=== PATIENT | female | born 1995 | race Two or more races ===

== ENCOUNTER 2019-01-29 09:00 | Outpatient (CLI) | payer OTHER, MEDICAID ==
[2019-01-29 21:52] LABS: TRICHOMONAS VAGINALIS DNA NEGATIVE (NEGATIVE)
== END 2019-01-29 23:59 | disposition home or self-care (01) ==
LOC: LAB.R 09:00
PROVIDERS: ATTEND Obstetrics & Gynecology
DX: Z34.00 Encounter for supervision of normal first pregnancy, unspecified trimester (principal)
CPT/HCPCS: 87491; 87591; 87661; 87797

== ENCOUNTER 2019-01-29 12:49 | Outpatient (CLI) | payer OTHER, MEDICAID ==
[2019-01-30 13:07] LABS: HEPATITIS C ANTIBODY NON-REACTIVE (NON-REACTIVE)
[2019-01-30 14:57] LABS: HIV AG/AB 4TH GEN NON-REACTIVE (NON-REACTIVE)
== END 2019-01-29 12:50 | disposition home or self-care (01) ==
LOC: LAB 12:49
PROVIDERS: ATTEND Obstetrics & Gynecology
DX: Z34.00 Encounter for supervision of normal first pregnancy, unspecified trimester (principal)
CPT/HCPCS: 36415; 86803; 87389; 87491; 87591; 87661; 87797

== ENCOUNTER 2019-02-15 15:14 | Outpatient (CLI) | payer OTHER ==
[2019-02-15 15:28] VITALS: BP 112/62
--- NOTE | 2019-02-15 20:17 | Ultrasound Report ---
Reason: decreased movement Procedure Date: 02/15/2019 Accession Number: [id number] / [id number] Procedure: US - OB Biophysical Profile CPT Code: Final Report FULL RESULT: EXAM: BIOPHYSICAL PROFILE EXAM DATE: 02/15/2019 05:39 PM. CLINICAL HISTORY: Decreased movement. COMPARISON: None. TECHNIQUE: Real-time sonographic evaluation of the fetus performed by the business solutions consultant. Multiple electronics parts sales representative static images were saved for review. DATING: Established EGA 37 weeks 6 days with JAMIE 03/02/2019. GENERAL EVALUATION Clarke . Cardiac activity: 125 bpm. movement: Visualized. Presentation: Cephalic. Placenta: Posterior position. No evidence for previa or abruption. Amniotic fluid: Normal. GABRIELA 11.6 cm. MVP 3.9 cm. BIOPHYSICAL PROFILE Breathing = 2 Movement = 2 Tone = 2 Amniotic Fluid = 2 Total 10/19 IMPRESSION: 1. Clarke live intrauterine with gestational age 37 weeks 6 days based on established JAMIE. 2. Biophysical profile score 8 of 8. 3. GABRIELA equals 11.6 cm. ELIAZARA
--- NOTE | 2019-02-15 20:36 | PROVIDER PROGRESS NOTE ---
- HPI Chief Complaint: Other Current : Current EDU 02/28/19 Gestation 38 Weeks and 1 Days 5 Para 0 Vital Signs Temperature 98.2 F 02/15/19 15:26 Heart Rate 70 02/15/19 15:26 Respiratory Rate 20 02/15/19 15:26 Blood Pressure 112/62 02/15/19 15:26 O2 Saturation 100 02/15/19 15:26 Temperature 98.2 F 02/15/19 15:26 Heart Rate 70 02/15/19 15:26 Respiratory Rate 20 02/15/19 15:26 Blood Pressure 112/62 02/15/19 15:26 O2 Saturation 100 02/15/19 15:26 - Procedures OB Procedure Performed: NST (extended monitorin mod eren 15x15 accels no decels TOCO: quiet At initial presentation, nonreactive NST was noted BPP 8/) Diagnosis/Indication for NST: Decreased movement NST Procedure: NST Procedure Start Date 02/15/19 Start Time 15:26 Vibroacoustic Stimulation Used No Patient States Movement Yes Service Date of procedure: 02/15/19 Procedure Details: Inital NST non-reactive Extended monitoring with baseline 125 mod eren 15x15 accels no decels BPP 8/8 - Plan Plan: Reassuring assessment Cat I tracing on extended monitoring BPP 8/8 FU with routine OB care
== END 2019-02-15 20:31 | disposition home or self-care (01) ==
LOC: WFO 15:14 → FBP 15:19 → WFO 20:31
PROVIDERS: ATTEND Obstetrics & Gynecology
DX: O36.8133 Decreased fetal movements, third trimester, fetus 3 (principal); Z3A.38 38 weeks gestation of pregnancy
CPT/HCPCS: 76819; 99214

== ENCOUNTER 2019-02-22 11:31 | Outpatient (CLI) | payer OTHER, MEDICAID ==
--- NOTE | 2019-02-23 10:15 | Ultrasound Report ---
Reason: POOR GROWTH AFFECTING MANAGEMENT OF MOTHER Procedure Date: 02/22/2019 Accession Number: [id number] / [id number] Procedure: US - OB F/U or Repeat CPT Code: Final Report FULL RESULT: EXAM: FOLLOW-UP OBSTETRICAL ULTRASOUND EXAM DATE: 02/22/2019 01:09 PM. CLINICAL HISTORY: Poor growth affecting management of mother. COMPARISON: OB BIOPHYSICAL PROFILE 02/15/2019 4:59 PM. TECHNIQUE: Real-time sonographic evaluation of the fetus performed by the devops engineer. Multiple cash posting representative static images were saved for review. DATING: Established EGA 38 weeks 6 days with JAMIE 03/02/2019 based on working due date. EGA 37 weeks 2 days with JAMIE 03/13/2019 based on the current ultrasound. GENERAL EVALUATION Clarke . Cardiac activity: 132 bpm. movement: Visualized. Presentation: Cephalic. Placenta: Posterior position. Amniotic fluid: Normal. GABRIELA 18.6 cm. MVP 5.3 cm. BIOMETRY Bi-Parietal Diameter (BPD): 9.28 cm, 37 weeks 5 days Head Circumference (HC): 32.91 cm, 37 weeks 3 days Abdominal Circumference (AC): 33.71 cm, 37 weeks 3 days Femur Length (FL): 7.09 cm, 36 weeks 2 days Estimated Weight: 3143 g, 27th percentile for 38 weeks 6 days. IMPRESSION: 1. Clarke live intrauterine with gestational age 38 weeks 6 days based on working due date and LMP. 2. Estimated weight is within expected limits for assigned dating. BOB
== END 2019-02-22 11:32 | disposition home or self-care (01) ==
LOC: DI 11:31
PROVIDERS: ATTEND Obstetrics & Gynecology
DX: Z36.4 Encounter for antenatal screening for fetal growth retardation (principal); O36.5930 Maternal care for other known or suspected poor fetal growth, third trimester, not applicable or unspecified; Z3A.38 38 weeks gestation of pregnancy
CPT/HCPCS: 76816

== ENCOUNTER 2019-02-25 23:52 | Outpatient (CLI) | payer MEDICAID, OTHER ==
[2019-02-26 00:09] VITALS: BP 122/64
--- NOTE | 2019-02-26 07:17 | PROVIDER PROGRESS NOTE ---
- HPI Chief Complaint: Labor Check Current : Current EDU 03/02/19 Gestation 39 Weeks and 3 Days 5 Para 0 Vital Signs Temperature 36.4 C L 02/26/19 00:03 Heart Rate 72 02/26/19 00:03 Respiratory Rate 18 02/26/19 00:03 Blood Pressure 122/64 02/26/19 00:03 O2 Saturation 100 02/26/19 00:03 Temperature 36.4 C L 02/26/19 00:03 Heart Rate 72 02/26/19 00:03 Respiratory Rate 18 02/26/19 00:03 Blood Pressure 122/64 02/26/19 00:03 O2 Saturation 100 02/26/19 00:03 - Procedures OB Procedure Performed: NST NST Procedure: NST Procedure Start Time 15:26 base line 120 Accelerations present Service Date of procedure: 02/25/19 Procedure Details: cervix closed per nursing not in labor.
== END 2019-02-26 01:49 | disposition home or self-care (01) ==
LOC: WFO 23:52 → FBP 23:56 → WFO 02-26 01:49
PROVIDERS: ATTEND Obstetrics & Gynecology
DX: Z34.83 Encounter for supervision of other normal pregnancy, third trimester (principal); Z3A.39 39 weeks gestation of pregnancy
CPT/HCPCS: 99213

== ENCOUNTER 2019-03-07 23:58 | Outpatient (CLI) | payer OTHER ==
[2019-03-08 00:22] VITALS: BP 127/76
[2019-03-08 01:31] LABS: RUPTURE OF MEMBRANES PLUS NEGATIVE (NEGATIVE)
--- NOTE | 2019-03-08 02:23 | PROCEDURE REPORT ---
- HPI Diagnosis/Indication for NST: Post-dates gestation Current EDU 03/02/19 Gestation 40 Weeks and 6 Days 5 Para 0 Vital Signs Temperature 98.2 F 03/08/19 00:11 Heart Rate 69 03/08/19 00:11 Respiratory Rate 18 03/08/19 00:11 Blood Pressure 127/76 03/08/19 00:11 O2 Saturation 99 03/08/19 00:11 Temperature 98.2 F 03/08/19 00:11 Heart Rate 69 03/08/19 00:11 Respiratory Rate 18 03/08/19 00:11 Blood Pressure 127/76 03/08/19 00:11 O2 Saturation 99 03/08/19 00:11 - NST Procedure NST Procedure Start Time 15:26 - Results and Plan Findings/Impression: Pt comes to triage worried about being post dates. Having some moderate UC q 10+min. Wonders if she is leaking fluid--has had increased watery discharge over the past 3d, definitely coming from the vagina, is clear mixed with white and yellow tint, is clumpy. Feeling a little itchy externally. Some intermittent back pain that is mild and new. AVSS, alert, NAD, is not appearing to be in significant discomfort during the visit SVE 3/90/-3/soft/posterior US vertex with sufficient fluid--MVP not measured ROM plus test was negative External vulvar irritation c/w yeast vaginitis Category 1 NST [place] q4-10min Pt was offered membrane sweep and declines for now. Worried about IOL, we discussed that process. Worried about going post dates, we reviewed that current surveillance is reassuring/normal. She will f/u with Dr. Garcia later today and discuss setting up IOL.
== END 2019-03-08 01:48 | disposition home or self-care (01) ==
LOC: WFO 23:58 → FBP 03-08 → WFO 03-08 01:48
PROVIDERS: ATTEND Obstetrics & Gynecology
DX: O48.0 Post-term pregnancy (principal); Z3A.40 40 weeks gestation of pregnancy; O99.89 Other specified diseases and conditions complicating pregnancy, childbirth and the puerperium; N89.8 Other specified noninflammatory disorders of vagina
CPT/HCPCS: 84112; 99213; 99214

== ENCOUNTER 2019-03-09 13:15 | Inpatient (IN) | payer OTHER ==
--- NOTE | 2019-03-09 13:57 | HISTORY & PHYSICAL EXAMINATION ---
Admit History - Visit Reason Visit Reason: Other - : 5 Parity: 0 Premature: 0 Ectopic: 0 : 4 Care: positive: [facility] Risk/History: positive: Labor induction Complications This : positive: None - Mother's Labs Mother's Blood Type: positive: O Mother's RH: positive: Positive GBS: positive: Other Rubella Status: positive: Immune Meds/Allgy - Allergies Allergies/Adverse Reactions: Allergies Allergy/AdvReac Type Severity Reaction Status Date / Time No Known Drug Allergies Allergy Verified 03/09/19 13:53 Review of Systems - Constitutional Constitutional: denies: Fever, Chills, Poor appetite - Eyes Eyes: denies: Blurred vision, Spots in vision - Cardiovascular Cariovascular: denies: Irregular heart rate, Palpitations, Chest pain - Respiratory Respiratory: denies: Cough, SOB at rest - Gastrointestinal Gastrointestinal: denies: Abdominal pain, Nausea, Vomiting - Genitourinary Genitourinary: denies: Dysuria - Neurological Neurological: denies: Headache, Dizziness - Psychiatric Psychiatric: denies: Depression - All Other Systems All Other Systems: reports: Reviewed and negative Physical - Abdominal Exam Contraction Intensity: positive: Mild, Irritability Uterine Resting Tone: positive: Soft - Monitoring Strip Review: positive: Category I - Presentation Presentation: positive: Vertex - Vaginal Exam Membranes: positive: Membranes intact Dilation (in cm): 4 Effacement (%): 70 Station: positive: -2 Cervical Position: positive: Midposition - Speculum Exam Speculum Exam Performed: positive: No (RESP CTA CV RRR 3/6 systolic murmur at LSB Abdomen gravid, S=D, non-tender) Plan for Labor - Plan For Labor Plan for Labor: 23yo at 41 0/7 weeks by LMP c/w second trimester scan GBS unknown ( 03/05) O+ who is admitted for postdates IOL. No ROM or bleeding, normal activity. Not feeling any contractions. course unremarkable. Labs as noted and Glucola 73 Hep B, C/HIV/VDRL NR GC chlam neg Anemia/ hgb 11.4 on 11/14 Vertex by scan Favorable cervix. Planning unmedicated labor Planning d provera for contraception EFW 3600gm Check CBC, T&S, start pitocin GBS unknown protocol. Expect
[2019-03-09] MEDS ORDERED: SODIUM CHLORIDE FLUSH 0.9% 10 ML SYRINGE IVP PRN (14:39)
[2019-03-09] MEDS ORDERED: fentaNYL 100 MCG/2 ML VIAL IVP PRN (14:39)
[2019-03-09] MEDS ORDERED: PROMETHAZINE INJ 25 MG in SODIUM CHLORIDE 0.9% 50 ML IV PRN (14:46)
--- NOTE | 2019-03-09 14:54 | DISCHARGE SUMMARY ---
Discharge Summary Admit Date: 03/09/19 Code Status: Attempt Resuscitation Condition at Discharge: Good Discharge Disposition: 01 Home, Self Care - DIAGNOSES Admission Diagnoses: at 41 weeks Morbid obesity Anemia - HPI History of Present Illness: 23yo now 1 admitted for IOL at 41 weeks by LMP c/w second trimester scan. complicated by morbid obesity and postdates. GBS unknown; Secondary to favorable cervix, oxytocin was started. - HOSPITAL COURSE Hospital Course: On pitocin her labor progressed to full dilatation. She was delivered of a 3201gm vigorous male infant apgars 7/8 on 03/10. She had bilateral sulcus and periurethral lacerations which required repair. Because of significant tissue edema and mucosal friability, a vaginal pack was placed which was removed on PPD 1. EBL was 450cc. She remained stable but required significant support in terms of education, self care and that of . AGENT BASED MODELER consult obtained. She improved over two days in terms of understanding and ability to care for baby. She was well. Baby required phototherapy. She was DC'd home on PPD 2 with f/u in one week. Depo provera for contraception. - ALLERGIES Allergies/Adverse Reactions: Allergies Allergy/AdvReac Type Severity Reaction Status Date / Time No Known Drug Allergies Allergy Verified 03/09/19 13:53 - MEDICATIONS Home Medications: Ambulatory Orders Medication Instructions Recorded Confirmed Pnv No.95/Ferrous Fum/Folic AC 1 tab PO DAILY 03/09/19 03/09/19 [ Caplet] Acetaminophen [Tylenol] 650 mg PO Q6HR PRN 03/12/19 03/12/19 Ibuprofen [Ibu] 600 mg PO Q6HR PRN MDD 3000mg 03/12/19 03/12/19 - PHYSICAL EXAM AT DISCHARGE General Appearance: positive: No acute distress, Alert Eyes Bilateral: positive: Normal inspection Respiratory: positive: No respiratory distress, Breath sounds nml Cardiovascular: positive: Regular rate & rhythm, Systolic murmur Abdomen: positive: Non-tender, Other (Fundus firm below umbilicus) Skin: positive: Color nml Extremities: positive: Nml appearance Neurologic/Psychiatric: positive: Oriented x3 - LABS Result Diagrams: 03/09/19 14:51 - FOLLOW UP Follow Up: One week
[2019-03-09 15:01] LABS: BASOPHILS % (AUTO) 0.3 %; EOSINOPHILS # (AUTO) 0.1 10^3/uL (0.0-0.7); EOSINOPHILS % (AUTO) 0.7 %; LYMPHOCYTES # (AUTO) 1.6 10^3/uL (1.5-3.5); LYMPHOCYTES % (AUTO) 12.1 %; MEAN CORPUSCULAR HGB CONC 34.3 g/dL (32.0-36.0); MEAN CORPUSCULAR VOLUME 93.3 fL (81.0-99.0); MEAN PLATELET VOLUME 10.4 fL (7.9-10.8); MONOCYTES # (AUTO) 0.9 10^3/uL (0.0-1.0); MONOCYTES % (AUTO) 6.9 %; NEUTROPHILS # (AUTO) 10.5 10^3/uL (1.5-6.6); NEUTROPHILS % (AUTO) 78.6 %; PLT - PLATELET COUNT 249 10^3/uL (130-450); RED BLOOD COUNT 4.06 10^6/uL (4.20-5.40); RED CELL DISTRIBUTION WIDTH 12.7 % (12.0-15.0); WHITE BLOOD COUNT 13.4 x10^3/uL (4.8-10.8)
[2019-03-09] MEDS ORDERED: OXYTOCIN/DEXTROSE 5 % 30 UNIT/500 ML BAG IV SCH (16:00)
[2019-03-09] MEDS ORDERED: OXYTOCIN/DEXTROSE 5 % 30 UNIT/500 ML BAG IV ONE (16:01)
[2019-03-09] MEDS: LACTATED RINGERS 1,000 ML IV SCH ×3 (16:15→20:48)
--- NOTE | 2019-03-09 16:57 | PROVIDER PROGRESS NOTE ---
Labor Progress Note - Uterine Monitoring Contraction Intensity: positive: Mild Uterine Resting Tone: positive: Soft - Monitoring Monitor Mode: positive: External ultrasound Heart Rate Variability: positive: Moderate (6-25 bmp) Accelerations: positive: Present, 15x15 Decelerations: positive: Variable Strip Review: positive: Category II (Few shallow decels with spontaneous recovery. Pit at 3mu Continue induction)
[2019-03-09] MEDS ORDERED: SODIUM CHLORIDE FLUSH 0.9% 10 ML SYRINGE IVP SCH (17:00)
--- NOTE | 2019-03-09 18:17 | PROVIDER PROGRESS NOTE ---
Subjective - Prog Note Date Prog Note Date: 03/09/19 Prog Note Time: 18:16 (Still very comfortable. Pit at 5mu/min. Few mild contractions. 1L bolus given, now FH category1. Continue IOL) Objective - Vital Signs/Intake & Output Intake & Output: Intake & Output 03/06/19 03/07/19 03/08/19 03/09/19 23:59 23:59 23:59 23:59 Intake Total 228.317 Balance 228.317 - Lab Results Fish Bones: 03/09/19 14:51 Other Labs: Lab Results x24hrs 03/09/19 03/09/19 Range/Units 14:51 14:51 WBC 13.4 H (4.8-10.8) x10^3/uL RBC 4.06 L (4.20-5.40) 10^6/uL Hgb 13.0 (12.0-16.0) g/dL Hct 37.9 (37.0-47.0) % MCV 93.3 (81.0-99.0) fL MCH 32.0 H (27.0-31.0) pg MCHC 34.3 (32.0-36.0) g/dL RDW 12.7 (12.0-15.0) % Plt Count 249 (130-450) 10^3/uL MPV 10.4 (7.9-10.8) fL Neut # (Auto) 10.5 H (1.5-6.6) 10^3/uL Lymph # (Auto) 1.6 (1.5-3.5) 10^3/uL [place] # (Auto) 0.9 (0.0-1.0) 10^3/uL Eos # (Auto) 0.1 (0.0-0.7) 10^3/uL Baso # (Auto) 0.0 (0.0-0.1) 10^3/uL Absolute Nucleated RBC 0.00 x10^3/uL Nucleated RBC % 0.0 /100WBC Blood Type O POSITIVE Antibody Screen NEGATIVE
[2019-03-09] MEDS ORDERED: CALCIUM CARBONATE CHEW 500 MG TABLET PO PRN (19:58)
--- NOTE | 2019-03-09 22:19 | PROVIDER PROGRESS NOTE ---
Subjective - Prog Note Date Prog Note Date: 03/09/19 Prog Note Time: 22:16 - Subjective Subjective: Starting to feel contractions but is sleeping through most. VSS feb FH largely Category 1. Rare episodes of small variables as previously noted. Contractions q3 but with segments widely spaced. Exam deferred. Continue to increase pitocin. Plan max 30mu/min and then a break if not in labor. Objective - Vital Signs/Intake & Output Intake & Output: Intake & Output 03/06/19 03/07/19 03/08/19 03/09/19 23:59 23:59 23:59 23:59 Intake Total 698.300 Output Total 251 Balance 447.300 - Lab Results Fish Bones: 03/09/19 14:51 Other Labs: Lab Results x24hrs 03/09/19 03/09/19 Range/Units 14:51 14:51 WBC 13.4 H (4.8-10.8) x10^3/uL RBC 4.06 L (4.20-5.40) 10^6/uL Hgb 13.0 (12.0-16.0) g/dL Hct 37.9 (37.0-47.0) % MCV 93.3 (81.0-99.0) fL MCH 32.0 H (27.0-31.0) pg MCHC 34.3 (32.0-36.0) g/dL RDW 12.7 (12.0-15.0) % Plt Count 249 (130-450) 10^3/uL MPV 10.4 (7.9-10.8) fL Neut # (Auto) 10.5 H (1.5-6.6) 10^3/uL Lymph # (Auto) 1.6 (1.5-3.5) 10^3/uL [place] # (Auto) 0.9 (0.0-1.0) 10^3/uL Eos # (Auto) 0.1 (0.0-0.7) 10^3/uL Baso # (Auto) 0.0 (0.0-0.1) 10^3/uL Absolute Nucleated RBC 0.00 x10^3/uL Nucleated RBC % 0.0 /100WBC Blood Type O POSITIVE Antibody Screen NEGATIVE
[2019-03-10] MEDS ORDERED: ROPIVACAINE 0.2% 200 MG/100 ML BAG EP ONE (00:13)
[2019-03-10] MEDS ORDERED: LIDOCAINE-MPF 1% 30 ML VIAL ONE (00:35)
[2019-03-10] MEDS ORDERED: ePHEDrine 50 MG/ML VIAL IVP PRN (01:23)
[2019-03-10] MEDS ORDERED: ONDANSETRON 4 MG/2 ML VIAL IVP PRN (01:23)
[2019-03-10] MEDS ORDERED: LACTATED RINGERS 500 ML IV ONE (01:23)
[2019-03-10] MEDS ORDERED: NALOXONE 0.4 MG/ML VIAL IVP PRN (01:23)
[2019-03-10] MEDS ORDERED: NALBUPHINE 10 MG/ML AMP IVP PRN (01:23)
[2019-03-10] MEDS ORDERED: ROPIVACAINE 0.2% 200 MG/100 ML BAG EP PRN (01:23)
[2019-03-10] MEDS ORDERED: diphenhydrAMINE INJ 50 MG/ML VIAL IVP PRN (01:23)
--- NOTE | 2019-03-10 01:23 | ANESTHESIA ---
Pre-Anesthesia VS, & Labs - Diagnosis Active labor - Procedure labor epidural Height 5 ft 7 in Weight (kg) 105.687 kg - Is Patient ?: Yes - Lab Results Current Lab Results: Laboratory Tests 03/09/19 14:51: Blood Type O POSITIVE, Antibody Screen NEGATIVE 03/09/19 14:51: WBC 13.4 H, RBC 4.06 L, Hgb 13.0, Hct 37.9, MCV 93.3, MCH 32.0 H , MCHC 34.3, RDW 12.7, Plt Count 249, MPV 10.4, Neut # (Auto) 10.5 H, Lymph # (Auto) 1.6, [place] # (Auto) 0.9, Eos # (Auto) 0.1, Baso # (Auto) 0.0, Absolute Nucleated RBC 0.00, Nucleated RBC % 0.0 Fish Bones: 03/09/19 14:51 Home Medications and Allergies Home Medications: Ambulatory Orders Pnv No.95/Ferrous Fum/Folic AC [ Caplet] 1 tab PO DAILY 03/09/19 Active Medications Acetaminophen (Tylenol) 650 mg PO Q6H PRN PRN Reason: PAIN Calcium Carbonate/Glycine (Tums) 500 mg PO BID PRN PRN Reason: Heartburn Last Admin: 03/09/19 20:49 Dose: 500 mg Fentanyl (Fentanyl) 100 mcg IVP Q2HR PRN PRN Reason: PAIN Lactated Ringer's (Lr) 1,000 mls @ 150 mls/hr IV .Q6H40M [facility] Last Admin: 03/09/19 20:48 Dose: 150 mls/hr Promethazine HCl 25 mg/ Sodium (Chloride) 51 mls @ 100 mls/hr IV Q6H PRN PRN Reason: Agitation OXYTOCIN/DEXTROSE 5 % (Pitocin/Dextrose 5%) 30 unit in 500 mls @ 1 mls/hr IV TITR [facility]; Protocol Last Titration: 03/09/19 19:34 Dose: 9 mls/hr Sodium Chloride (Normal Saline Flush 0.9%) 10 ml IVP PRN PRN PRN Reason: NEEDED PER PROVIDER ORDERS Sodium Chloride (Normal Saline Flush 0.9%) 10 ml IVP 0100,0900,1700 [facility] Last Admin: 03/09/19 20:51 Dose: Not Given Pnv No.95/Ferrous Fum/Folic AC [ Caplet] 1 tab PO DAILY 03/09/19 Allergies/Adverse Reactions: Allergies Allergy/AdvReac Type Severity Reaction Status Date / Time No Known Drug Allergies Allergy Verified 03/09/19 13:53 Anes History & Medical History - Anesthetic History Anesthesia Complications: reports: No previous complications Family history of Anesthesia Complications: Denies Family history of Malignant Hyperthermia: Denies - Medical History Cardiovascular: reports: None Pulmonary: reports: None Gastrointestinal: reports: None Urinary: reports: None Neuro: reports: None Musculoskeletal: reports: Scoliosis Endocrine/Autoimmune: reports: None Blood Disorders: reports: None Skin: reports: None Smoking Status: Never smoker Psychosocial: reports: No issues indicated - Obstetrical History : 5 Parity: 0 Events: positive: Labor induction Complications: positive: None Exam General: Alert, Oriented x3, Cooperative, No acute distress Dental: WNL Mouth Openin Fingerbreadth Neck Mobility: Normal Mallampati classification: II Thyromental Distance: 4-6 cm Respiratory: Lungs clear, Normal breath sounds, No respiratory distress, No accessory muscle use Cardiovascular: Regular rate, Normal S1, Normal S2, No murmurs Abdomen: Normal bowel sounds, Soft, No tenderness, No hepatospenomegaly, No masses Extremities: No clubbing, No cyanosis, No edema, Normal pulses, No tenderness/swelling Neurological: Normal gait, Normal speech, Strength at 5/5 X4 ext, Normal tone, Sensation intact, Cranial nerves 3-12 NL, Reflexes 2+ Mental/Cognitive Status: Alert/Oriented X3, Normal for patient Cognitive Status: Within normal limits Plan Anesthesia Type: Epidural Consent for Procedure(s) Verified and Reviewed: Yes Code Status: Attempt Resuscitation ASA classification: 2-Mild systemic disease Is this case an emergency?: No
--- NOTE | 2019-03-10 01:37 | ANESTHESIA PROCEDURE NOTE ---
Diagnosis: active labor Procedure: Labor Epidural Height and Weight: Height 5 ft 7 in Weight (kg) 105.687 kg Allergies No Known Drug Allergies Allergy (Verified 03/09/19 13:53) ASA classification: 2-Mild systemic disease Is this case an emergency?: No Anes. Procedure Start Time: 00:45 Procedure Notes: Patient requesting epidural for labor pain relief. At the bedside at about 0045. Pre procedure anesthesia evaluation completed, consent signed. Spoke with the patient in detail about the benefits and potential risks of epidural placement. She agrees to proceed. Patient has quite a bit of scoliosis which made the epidural placement a little challenging, but she remained cooperative. SKin was prepped with chlorohexidine in a sterile fashion, and numbed with Lidocaine 1% 3ml. 3rd attempt was successful at L4 L5 interspace and was negative for both csf and blood. Epidural Catheter threaded in with ease. TD was negative. First bolus of 5mls of 1% plain lidocaine with 5ml of NS given after negative aspiration. Patient reported relief and there was a little drop in her BP and HR. Baby remained stable as well.Patient tolerated the procedure well.
--- NOTE | 2019-03-10 03:26 | PROVIDER PROGRESS NOTE ---
Subjective - Prog Note Date Prog Note Date: 03/10/19 Prog Note Time: 03:22 - Subjective Subjective: Comfortable with epidural. VSS afeb Muniz in place, urine clear, pale >100cc/hr FH Category 2. Moderate variability, variable decels with some contractions; short duration, improved with position change Pit at 4mu/min, contractions q2-4 Cx 8-9/90/-1 per RN exam Doing well. Good progress. Continue position change and observation for now. Objective - Vital Signs/Intake & Output Intake & Output: Intake & Output 03/07/19 03/08/19 03/09/19 03/10/19 23:59 23:59 23:59 23:59 Intake Total 898.300 Output Total 251 560 Balance 647.300 -560 - Lab Results Fish Bones: 03/09/19 14:51 Other Labs: Lab Results x24hrs 03/09/19 03/09/19 Range/Units 14:51 14:51 WBC 13.4 H (4.8-10.8) x10^3/uL RBC 4.06 L (4.20-5.40) 10^6/uL Hgb 13.0 (12.0-16.0) g/dL Hct 37.9 (37.0-47.0) % MCV 93.3 (81.0-99.0) fL MCH 32.0 H (27.0-31.0) pg MCHC 34.3 (32.0-36.0) g/dL RDW 12.7 (12.0-15.0) % Plt Count 249 (130-450) 10^3/uL MPV 10.4 (7.9-10.8) fL Neut # (Auto) 10.5 H (1.5-6.6) 10^3/uL Lymph # (Auto) 1.6 (1.5-3.5) 10^3/uL [place] # (Auto) 0.9 (0.0-1.0) 10^3/uL Eos # (Auto) 0.1 (0.0-0.7) 10^3/uL Baso # (Auto) 0.0 (0.0-0.1) 10^3/uL Absolute Nucleated RBC 0.00 x10^3/uL Nucleated RBC % 0.0 /100WBC Blood Type O POSITIVE Antibody Screen NEGATIVE
--- NOTE | 2019-03-10 04:06 | PROVIDER PROGRESS NOTE ---
Subjective - Prog Note Date Prog Note Date: 03/10/19 Prog Note Time: 04:04 - Subjective Subjective: Continues to be comfortable, not feeling anything VSS afeb Pit at 4 FH with moderate variability, decels nearly resolved, now occurring rarely Cx Rim/100/+1 A/P Good progress, FH improved with position change. Continue; expect Objective - Vital Signs/Intake & Output Intake & Output: Intake & Output 03/07/19 03/08/19 03/09/19 03/10/19 23:59 23:59 23:59 23:59 Intake Total 898.300 Output Total 251 560 Balance 647.300 -560 - Lab Results Fish Bones: 03/09/19 14:51 Other Labs: Lab Results x24hrs 03/09/19 03/09/19 Range/Units 14:51 14:51 WBC 13.4 H (4.8-10.8) x10^3/uL RBC 4.06 L (4.20-5.40) 10^6/uL Hgb 13.0 (12.0-16.0) g/dL Hct 37.9 (37.0-47.0) % MCV 93.3 (81.0-99.0) fL MCH 32.0 H (27.0-31.0) pg MCHC 34.3 (32.0-36.0) g/dL RDW 12.7 (12.0-15.0) % Plt Count 249 (130-450) 10^3/uL MPV 10.4 (7.9-10.8) fL Neut # (Auto) 10.5 H (1.5-6.6) 10^3/uL Lymph # (Auto) 1.6 (1.5-3.5) 10^3/uL [place] # (Auto) 0.9 (0.0-1.0) 10^3/uL Eos # (Auto) 0.1 (0.0-0.7) 10^3/uL Baso # (Auto) 0.0 (0.0-0.1) 10^3/uL Absolute Nucleated RBC 0.00 x10^3/uL Nucleated RBC % 0.0 /100WBC Blood Type O POSITIVE Antibody Screen NEGATIVE
[2019-03-10] MEDS ORDERED: miSOPROStoL 100 MCG TABLET ONE (05:03)
--- NOTE | 2019-03-10 05:20 | PROVIDER PROGRESS NOTE ---
Subjective - Prog Note Date Prog Note Date: 03/10/19 Prog Note Time: 05:18 - Subjective Subjective: Feeling low back pressure VSS afeb Pit at 6mu/min Contractions spaced FH with mod variability, few early decels Cx very scant anterior lip that disappears with contraction. +2 AROM clear. A/P Stable. Expect Objective - Vital Signs/Intake & Output Intake & Output: Intake & Output 03/07/19 03/08/19 03/09/19 03/10/19 23:59 23:59 23:59 23:59 Intake Total 898.300 Output Total 251 635 Balance 647.300 -635 - Lab Results Fish Bones: 03/09/19 14:51 Other Labs: Lab Results x24hrs 03/09/19 03/09/19 Range/Units 14:51 14:51 WBC 13.4 H (4.8-10.8) x10^3/uL RBC 4.06 L (4.20-5.40) 10^6/uL Hgb 13.0 (12.0-16.0) g/dL Hct 37.9 (37.0-47.0) % MCV 93.3 (81.0-99.0) fL MCH 32.0 H (27.0-31.0) pg MCHC 34.3 (32.0-36.0) g/dL RDW 12.7 (12.0-15.0) % Plt Count 249 (130-450) 10^3/uL MPV 10.4 (7.9-10.8) fL Neut # (Auto) 10.5 H (1.5-6.6) 10^3/uL Lymph # (Auto) 1.6 (1.5-3.5) 10^3/uL [place] # (Auto) 0.9 (0.0-1.0) 10^3/uL Eos # (Auto) 0.1 (0.0-0.7) 10^3/uL Baso # (Auto) 0.0 (0.0-0.1) 10^3/uL Absolute Nucleated RBC 0.00 x10^3/uL Nucleated RBC % 0.0 /100WBC Blood Type O POSITIVE Antibody Screen NEGATIVE
--- NOTE | 2019-03-10 05:44 | PROVIDER PROGRESS NOTE ---
Subjective - Prog Note Date Prog Note Date: 03/10/19 Prog Note Time: 05:42 - Subjective Subjective: Very uncomfortable in bed, not with contractions. Reclined on her side with resulting decel to 90's lasting 2 minutes. Spontaneous recovery when repositioned. Other parameters unchanged. A/P Continue labor. Objective - Vital Signs/Intake & Output Intake & Output: Intake & Output 03/07/19 03/08/19 03/09/19 03/10/19 23:59 23:59 23:59 23:59 Intake Total 898.300 Output Total 251 635 Balance 647.300 -635 - Lab Results Fish Bones: 03/09/19 14:51 Other Labs: Lab Results x24hrs 03/09/19 03/09/19 Range/Units 14:51 14:51 WBC 13.4 H (4.8-10.8) x10^3/uL RBC 4.06 L (4.20-5.40) 10^6/uL Hgb 13.0 (12.0-16.0) g/dL Hct 37.9 (37.0-47.0) % MCV 93.3 (81.0-99.0) fL MCH 32.0 H (27.0-31.0) pg MCHC 34.3 (32.0-36.0) g/dL RDW 12.7 (12.0-15.0) % Plt Count 249 (130-450) 10^3/uL MPV 10.4 (7.9-10.8) fL Neut # (Auto) 10.5 H (1.5-6.6) 10^3/uL Lymph # (Auto) 1.6 (1.5-3.5) 10^3/uL [place] # (Auto) 0.9 (0.0-1.0) 10^3/uL Eos # (Auto) 0.1 (0.0-0.7) 10^3/uL Baso # (Auto) 0.0 (0.0-0.1) 10^3/uL Absolute Nucleated RBC 0.00 x10^3/uL Nucleated RBC % 0.0 /100WBC Blood Type O POSITIVE Antibody Screen NEGATIVE
--- NOTE | 2019-03-10 06:15 | PROVIDER PROGRESS NOTE ---
Subjective - Prog Note Date Prog Note Date: 03/10/19 Prog Note Time: 06:14 - Subjective Subjective: Feeling pressure VSS afeb Few early decels. Pit at 6 Fully/+2>>+3 with contraction. A/P Will start pushing Objective - Vital Signs/Intake & Output Intake & Output: Intake & Output 03/07/19 03/08/19 03/09/19 03/10/19 23:59 23:59 23:59 23:59 Intake Total 898.300 Output Total 251 635 Balance 647.300 -635 - Lab Results Fish Bones: 03/09/19 14:51 Other Labs: Lab Results x24hrs 03/09/19 03/09/19 Range/Units 14:51 14:51 WBC 13.4 H (4.8-10.8) x10^3/uL RBC 4.06 L (4.20-5.40) 10^6/uL Hgb 13.0 (12.0-16.0) g/dL Hct 37.9 (37.0-47.0) % MCV 93.3 (81.0-99.0) fL MCH 32.0 H (27.0-31.0) pg MCHC 34.3 (32.0-36.0) g/dL RDW 12.7 (12.0-15.0) % Plt Count 249 (130-450) 10^3/uL MPV 10.4 (7.9-10.8) fL Neut # (Auto) 10.5 H (1.5-6.6) 10^3/uL Lymph # (Auto) 1.6 (1.5-3.5) 10^3/uL [place] # (Auto) 0.9 (0.0-1.0) 10^3/uL Eos # (Auto) 0.1 (0.0-0.7) 10^3/uL Baso # (Auto) 0.0 (0.0-0.1) 10^3/uL Absolute Nucleated RBC 0.00 x10^3/uL Nucleated RBC % 0.0 /100WBC Blood Type O POSITIVE Antibody Screen NEGATIVE
[2019-03-10] MEDS ORDERED: ROPIVACAINE 0.2% 0 MG/0 ML BAG EP ONE (06:29)
--- NOTE | 2019-03-10 08:52 | DELIVERY NOTE ---
Delivery Note - Labor Labor: positive: Induced by oxytocin - Delivery Method Delivery Method: positive: Spontaneous vaginal delivery - Cervical Ripening Method Cervical Ripening Method: positive: Oxytocin - Presentation Presentation: positive: Vertex, ARCHIE - left occiput anterior - Nuchal Cord Nuchal Cord: positive: None - Anesthetic Anesthetic Type: - Amniotic Fluid Description Amniotic Fluid Description: positive: Clear - Episiotomy Type Episiotomy Type: positive: None - Laceration Laceration: positive: Periurethral, Sulcus - Suture Suture Type: positive: Vicryl Suture Size: positive: 2-0, 3-0 - Delivery Outcome Delivery Outcome: positive: Livebirth - [place]: positive: Placed in direct skin contact with mother, Bulb syringe, Warmed, Dittmer used [place] sex: positive: Male - Cord Cord: positive: 3 vessels - Placenta Placenta: positive: Intact, Spontaneous - Estimated Blood Loss Estimated Blood Loss (in cc): 450 - Delivery Comments (Free Text/Narrative) Delivery Comments (Free Text/Narrative): Male infant 3201gms apgars 7/8 at 0701. Placenta expressed intact at 0706. Marked mucosal, labial edema with friable mucosa. Upper vagina, perineum, rectum intact. Bilateral sulus and periurethral lacs repaired. Vaginal pack placed, trotter catheter replaced.
[2019-03-10] MEDS ORDERED: HYDROCORTISONE 1% CREAM 28 GM TUBE PR PRN (08:53)
[2019-03-10] MEDS ORDERED: WITCH HAZEL/GLYCERIN 1 PAD TOP PRN (08:53)
[2019-03-10] MEDS: DOCUSATE SODIUM 100 MG CAPSULE PO SCH ×2 (10:51→23:47)
[2019-03-10] MEDS: IBUPROFEN 600 MG TABLET PO SCH ×3 (10:51→23:47)
[2019-03-10] MEDS: ACETAMINOPHEN 325 MG TABLET PO PRN (10:52)
[2019-03-10] MEDS: HYDROcod/ACETAM 5/325 MG TABLET PO PRN ×2 (17:02→21:16)
[2019-03-11] MEDS: HYDROcod/ACETAM 5/325 MG TABLET PO PRN (02:21)
[2019-03-11] MEDS: IBUPROFEN 600 MG TABLET PO SCH ×3 (06:02→18:32)
[2019-03-11] MEDS: DOCUSATE SODIUM 100 MG CAPSULE PO SCH ×2 (08:34→23:13)
--- NOTE | 2019-03-11 13:40 | PROVIDER PROGRESS NOTE ---
Subjective - Prog Note Date Prog Note Date: 03/11/19 Prog Note Time: 13:38 - Subjective Subjective: PPD 1 Patient with limited understanding of basic realities surrounding self care and care of baby. Needing much support, education and encouragement. INFORMATION SYSTEMS SUPERVISOR involved. Ambulating. Minimal lochia. Regular diet. VSS afeb. Copious urine output via trotter. Abd soft, non-tender. Fundus firm below umbilicus. Significant decrease in labial edema. Pack removed, no active bleeding. Trotter removed. A/P Stable from OB standpoint. Baby under bili lights and obs for GBS unkown Continue support and education. Expect DC tomorrow. Could benefit from VNA and early follow up. Planning Depo provera for contraception. Objective - Vital Signs/Intake & Output Vital Signs: Vital Signs x48h Temp Pulse Resp BP Pulse Ox 03/11/19 09:00 98.2 F 80 19 107/44 L 100 Intake & Output: Intake & Output 03/08/19 03/09/19 03/10/19 03/11/19 23:59 23:59 23:59 23:59 Intake Total 381.959 1393 Output Total 251 2110 600 Balance 647.300 -110 -600 - Lab Results Fish Bones: 03/09/19 14:51
[2019-03-11] MEDS: ACETAMINOPHEN 325 MG TABLET PO PRN (23:12)
[2019-03-12] MEDS: IBUPROFEN 600 MG TABLET PO SCH ×3 (04:20→18:43)
--- NOTE | 2019-03-12 08:37 | PROVIDER PROGRESS NOTE ---
Subjective - Prog Note Date Prog Note Date: 03/12/19 Prog Note Time: 08:35 - Subjective Subjective: PPD 2 Ambulating, reg diet, normal lochia. Still struggling a bit, better over weekend, going well. VSS afeb Abd soft, non-tender. Fundus firm below umbilicus A/P Stable. Anticipate DC home today. Follow up in one week. Planning Depo provera. Objective - Vital Signs/Intake & Output Vital Signs: Vital Signs x48h Temp Pulse Resp BP Pulse Ox 03/12/19 04:19 97.7 F 81 18 123/51 L 100 Intake & Output: Intake & Output 03/09/19 03/10/19 03/11/19 03/12/19 23:59 23:59 23:59 23:59 Intake Total 069.699 6891.2 Output Total 251 2110 1050 240 Balance 647.300 374.2 -1050 -240 - Lab Results Fish Bones: 03/09/19 14:51
[2019-03-12] MEDS: DOCUSATE SODIUM 100 MG CAPSULE PO SCH (08:42)
[2019-03-12] MEDS: ACETAMINOPHEN 325 MG TABLET PO PRN ×2 (08:42→15:01)
--- NOTE | 2019-03-12 08:51 | Discharge Plan ---
Discharge Plan Problem Reviewed?: Yes Disposition: Home, Self Care Condition: Good Prescriptions: Ibuprofen [Ibu] 600 mg PO Q6HR PRN 7 Days #20 tablet MDD 3000mg PRN Reason: Pain Ibuprofen [Motrin] 600 mg PO Q6H 7 Days #20 tablet Pnv No.95/Ferrous Fum/Folic AC [ Caplet] 1 tab PO DAILY 365 Days #100 tablet Diet: Regular Activity Restrictions: Pelvic rest Driving Restrictions: No Additional Instructions or Follow Up instructions: Follow up in one week No Smoking: If you smoke, Please STOP! Call for help.
[2019-03-12 18:42] VITALS: BP 116/64
--- NOTE | 2019-03-12 18:56 | Labor Flowsheet ---
Labor Flowsheet Datetime Report Generated by CPN: 03/12/2019 18:55 Datetime: 03/12/2019 18:39 Pulse: 71 SpO2 (%): 100 LaborFlag: Labor Datetime: 03/12/2019 18:38 VITAL SIGNS NBP Sys/Raegan/Mean (mmHg): 116 : 64 : 76 Datetime: 03/10/2019 07:01 MEDICATIONS Pitocin (milliunits): Started @ 999 Datetime: 03/10/2019 07:00 ASSESSMENT A Monitor Mode: External US Variability: Moderate 6-25 bpm Category: Category II Comments: patient pushing, unable to assess with pushing effort. FHR between pushing efforts 135 - 145. scalp stim by provider Oxygen Amount (LPM): 10 Datetime: 03/10/2019 06:56 STAGE 2 Pushing: Coached on Pushing; Urge to Push Pushing Position: Pushing with Contractions Pushing Progress: Descent with Pushing; Perineal Bulging; with Pushing Datetime: 03/10/2019 06:45 UTERINE ACTIVITY Monitor Mode: External Frequency (min): 3 Quality: Strong Duration (sec): 90-100 Pattern: Normal: <= 5 Contractions in 10 Minutes Resting Tone (Palpate): Relaxed FHR Baseline Rate : 135 Accelerations: None Decelerations: Variable Oxygen Method: Room Air Datetime: 03/10/2019 06:04 I/O Interventions: [place] Discontinued Datetime: 03/10/2019 06:00 Monitor Interventions for UA: [place] Adjusted Actions for Decelerations: Provider Notified Datetime: 03/10/2019 05:56 VAGINAL EXAM Dilatation (cm): 10.0 Effacement (%): 100 Station: 2 Exam by: Datetime: 03/10/2019 05:38 Patient Care Comments: R side high fowlers with peanut ball COMMUNICATION Communication: Provider at Bedside Communication Comments: Dr. Mitchell at bedside Datetime: 03/10/2019 05:28 Monitor Interventions for FHR: Ultrasound Adjusted Patient Position/Activity: Left Tilt Datetime: 03/10/2019 05:15 Respirations: 20 Temperature (C): 36.7 Temperature Route: Oral Pain Presence: Constant Pain Type: Pressure Pain Location: Back; Perineum Pain Relief Measures: Comfort Measures Pain Coping: Talking Through Contractions Datetime: 03/10/2019 05:13 Membrane Status: Ruptured Membranes Rupture Method: Artificial Amniotic Fluid Color: Clear Amniotic Fluid Amount: Scant Datetime: 03/10/2019 05:11 Provider Notified (Name): Dr. Mitchell Datetime: 03/10/2019 05:00 Contraction Comments: coupleting noted Datetime: 03/10/2019 04:00 Cervix, Consistency: Soft Datetime: 03/10/2019 03:56 Anesthesia Level Check: T10- Umbilicus Datetime: 03/10/2019 03:16 Provider Reviewed Strip: Yes Notification Reason: Status Update; Status; Labor Status; Uterine Activity; Pain Datetime: 03/10/2019 01:40 Cervix, Position: Posterior Datetime: 03/10/2019 01:25 PAIN Pain Scale: 0 Pain Assessment Comments: no pain, pressure noted post epidural Datetime: 03/10/2019 01:08 Epidural Procedure Other: Pump Started Datetime: 03/10/2019 00:57 Anesthesia Comments: bolus dose Datetime: 03/10/2019 00:53 Epidural Procedure: Test Dose Datetime: 03/10/2019 00:35 PROCEDURE TIME OUT Procedure Verify: Correct Patient Identity; Correct Side and Site are Marked; Accurate Procedure Co nsent Form; Agreement on Procedure to be Done; Correct Patient Position ANESTHESIA Anesthesia Plans: Epidural Epidural Positioning: Sitting Datetime: 03/10/2019 00:02 Comfort Measures: Family Support Datetime: 03/09/2019 23:54 TEACHING Instructional Method: Verbal Teaching Comments: nitrous education Datetime: 03/09/2019 20:41 PATIENT CARE IV/Blood Work: New IV Bag Hung Datetime: 03/09/2019 19:45 Plan of Care: Plan of Care Discussed; Induction Labor/Induction: Labor Stages; Induction; Tachysystole Interventions; Interventions; Activity Pain Management: Pain Scale/Goals; Comfort Measures Medications: Pitocin Related: Hydration; Activity and Rest Datetime: 03/09/2019 18:30 FHR Baseline Changes: No Baseline Change Datetime: 03/09/2019 18:08 Pitocin Checklist: At Least 1 Acceleration of 15 bpm x 15 Seconds in 30 Minutes or Adequate Variabi lity; No More than 1 Late Deceleration Occurred in Past 30 Minutes; No More than 2 Variable Decelerat ions > 60 Seconds in Duration and decreasing >60 bpm in 30 minutes; No More than 5 Uterine Contractio ns in 10 Minutes for any 20 Minute Interval; Uterus Palpates Soft between Contractions Datetime: 03/09/2019 15:24 Stage of : Labor Strip Reviewed by: Dr. Mitchell
== END 2019-03-12 18:54 | disposition home or self-care (01) | DRG 831 ==
LOC: WFO 13:15 → FBP 13:16 → WFO 14:37 → FBP 14:39
PROVIDERS: ADMIT Obstetrics & Gynecology; ATTEND Obstetrics & Gynecology
PROC: 3E033VJ Introduction of Other Hormone into Peripheral Vein, Percutaneous Approach (ICD-10-PCS; 2019-03-09)
PROC: 10E0XZZ Delivery of Products of Conception, External Approach (ICD-10-PCS; principal; 2019-03-10)
PROC: 0UQMXZZ Repair Vulva, External Approach (ICD-10-PCS; 2019-03-10)
PROC: 0UQG7ZZ Repair Vagina, Via Natural or Artificial Opening (ICD-10-PCS; 2019-03-10)
DX: O48.0 Post-term pregnancy (principal); Q04.3 Other reduction deformities of brain; O70.1 Second degree perineal laceration during delivery; O71.82 Other specified trauma to perineum and vulva; O99.214 Obesity complicating childbirth; E66.01 Morbid (severe) obesity due to excess calories; O99.02 Anemia complicating childbirth; D64.9 Anemia, unspecified; Z3A.41 41 weeks gestation of pregnancy; Z86.69 Personal history of other diseases of the nervous system and sense organs
CPT/HCPCS: 36415; 85025; 86850; 86900; 86901; A9270; J1050; J7040; J7120

== ENCOUNTER 2019-05-21 17:09 | Outpatient (CLI) | payer OTHER ==
[2019-05-22 22:05] LABS: TRICHOMONAS VAGINALIS DNA NEGATIVE (NEGATIVE)
[2019-05-22 22:46] LABS: CANDIDA GROUP DNA POSITIVE (NEGATIVE); CANDIDA KRUSEI DNA NEGATIVE (NEGATIVE); TRICHOMONAS VAGINALIS DNA NEGATIVE (NEGATIVE)
== END 2019-05-21 23:59 | disposition home or self-care (01) ==
LOC: LAB.R 17:09
PROVIDERS: ATTEND Obstetrics & Gynecology
DX: Z11.3 Encounter for screening for infections with a predominantly sexual mode of transmission (principal)
CPT/HCPCS: 87491; 87591; 87661; 87801

== ENCOUNTER 2020-01-02 15:12 | Outpatient (CLI) | payer OTHER ==
[2020-01-02 19:19] LABS: CANDIDA GROUP DNA POSITIVE (NEGATIVE); CANDIDA KRUSEI DNA NEGATIVE (NEGATIVE); TRICHOMONAS VAGINALIS DNA NEGATIVE (NEGATIVE)
== END 2020-01-02 23:59 | disposition home or self-care (01) ==
LOC: LAB 15:12
PROVIDERS: ATTEND Advanced Practice Midwife
DX: N76.0 Acute vaginitis (principal)
CPT/HCPCS: 87661; 87801

== ENCOUNTER 2020-03-05 01:48 | Outpatient (CLI) | payer OTHER | END 2020-03-05 01:49 | disposition EMS.NT | LOC: EMS 01:48 | PROVIDERS: ATTEND Surgery | DX: R51.9 Headache, unspecified (principal) ==

== ENCOUNTER 2020-03-05 02:17 | Emergency (ER) | payer OTHER ==
[2020-03-05 03:00] LABS: BASOPHILS % (AUTO) 0.4 %; EOSINOPHILS # (AUTO) 0.2 10^3/uL (0.0-0.7); EOSINOPHILS % (AUTO) 2.1 %; LYMPHOCYTES % (AUTO) 30.3 %; MEAN CORPUSCULAR HEMOGLOBIN 29.5 pg (27.0-31.0); MEAN CORPUSCULAR HGB CONC 33.1 g/dL (32.0-36.0); MEAN CORPUSCULAR VOLUME 89.1 fL (81.0-99.0); MONOCYTES # (AUTO) 0.7 10^3/uL (0.0-1.0); MONOCYTES % (AUTO) 6.6 %; NEUTROPHILS # (AUTO) 5.9 10^3/uL (1.5-6.6); NEUTROPHILS % (AUTO) 60.3 %; PLT - PLATELET COUNT 282 10^3/uL (130-450); RED BLOOD COUNT 4.41 10^6/uL (4.20-5.40); RED CELL DISTRIBUTION WIDTH 11.9 % (12.0-15.0); WHITE BLOOD COUNT 9.8 x10^3/uL (4.8-10.8)
[2020-03-05 03:13] LABS: ALBUMIN 4.4 g/dL (3.2-5.5); ALBUMIN/GLOBULIN RATIO 1.3 (1.0-2.2); BILIRUBIN,TOTAL 0.5 mg/dL (0.2-1.0); CALCIUM 9.7 mg/dL (8.5-10.3); CREATININE 0.8 mg/dL (0.4-1.0); TOTAL PROTEIN 7.9 g/dL (6.7-8.2)
--- NOTE | 2020-03-05 03:22 | ED Physician Documentation ---
PD HPI HEADACHE - Stated complaint Stated Complaint: POSS SEIZURE - Chief complaint Chief Complaint: Heent - History obtained from History obtained from: Patient - Additional information Additional information: Patient comes emergency department via EMS for chief complaint of feeling "off" today. Patient states that she went for a run For the late morning/early afternoon yesterday and noticed that Everything in her vision seemed "bright". She states that after the run, she noticed that she just felt "off" as if she were in a bubble, and noticed a throbbing left-sided headache. Patient denies n ausea or vomiting. She states she felt slightly lightheaded. The patient denies any visual changes or focal neurologic deficits. No syncope or seizure like activity that she is aware of. The patient states that she was afraid to go to sleep because she thought she might have a seizure and that she is home alone with her son while her is on deployment. She finally decided to come to the emergency department because she could not stop worrying about having seizure. The patient has a distant history of seizure disorder for which she had a left anterior temporal lobectomy in 2008. Patient has not had a seizure since. She is not on any medications currently and is otherwise healthy. She has not had any recent head injuries. The patient does admit to some insomnia and notes that she did not really drink any water after running yesterday. She had not drunk much before the run, either. No other complaints at this time. Review of Systems Ten Systems: 10 systems reviewed and negative Constitutional: reports: Reviewed and negative Eyes: reports: Reviewed and negative. denies: Loss of vision, Decreased vision, Photophobia Ears: reports: Reviewed and negative Nose: reports: Reviewed and negative Throat: reports: Reviewed and negative Cardiac: reports: Reviewed and negative Respiratory: reports: Reviewed and negative. denies: Dyspnea GI: reports: Reviewed and negative. denies: Nausea : reports: Reviewed and negative Skin: reports: Reviewed and negative Musculoskeletal: reports: Reviewed and negative Neurologic: reports: Headache. denies: Syncope, Seizure, Head injury Psychiatric: reports: Reviewed and negative Endocrine: reports: Reviewed and negative Immunocompromised: reports: Reviewed and negative PD PAST MEDICAL HISTORY - Past Medical History Past Medical History: Yes Cardiovascular: None Respiratory: None Neuro: None, Seizure disorder Endocrine/Autoimmune: None GI: None BACK HAND: None : None HEENT: None Psych: None Musculoskeletal: Scoliosis Derm: None - Past Surgical History Past Surgical History: Yes General: Other - Present Medications Home Medications: Ambulatory Orders Medication Instructions Recorded Confirmed No Known Home Medications 03/05/20 03/05/20 - Allergies Allergies/Adverse Reactions: Allergies Allergy/AdvReac Type Severity Reaction Status Date / Time No Known Drug Allergies Allergy Verified 03/05/20 02:26 - Social History Does the pt smoke?: No Smoking Status: Never smoker Does the pt drink ETOH?: No Does the pt have substance abuse?: No - Immunizations Immunizations are current?: No - POLST Patient has POLST: No PD ED PE NORMAL - Vitals Vital signs reviewed: Yes - General General: Alert and oriented X 3, No acute distress, Well developed/nourished - HEENT HEENT: Atraumatic, PERRL, EOMI, Moist mucous membranes - Neck Neck: Supple, no meningeal sign - Cardiac Cardiac: RRR, No murmur, Strong equal pulses - Respiratory Respiratory: No respiratory distress, Clear bilaterally - Abdomen Abdomen: Soft, Non tender, Non distended - Back Back: No CVA TTP, No spinal TTP - Derm Derm: Normal color, Warm and dry, No rash - Extremities Extremities: No deformity, No edema, No calf tenderness / cord - Neuro Neuro: Alert and oriented X 3, rubber mixer 2-12 intact, No motor deficit, No sensory deficit, Normal speech - Psych Psych: Normal mood, Normal affect Results - Vitals Vitals: Vital Signs - 24 hr 03/05/20 03/05/20 03/05/20 02:23 02:54 03:22 Temperature 36.7 C Heart Rate 85 76 71 Respiratory 16 16 15 Rate Blood Pressure 117/77 126/66 O2 Saturation 100 100 99 03/05/20 03/05/20 03:39 03:40 Temperature Heart Rate 76 Respiratory 15 15 Rate Blood Pressure 110/66 O2 Saturation 99 Oxygen O2 Source Room air - Labs Labs: Laboratory Tests 03/05/20 03/05/20 02:53 02:53 WBC 9.8 RBC 4.41 Hgb 13.0 Hct 39.3 MCV 89.1 MCH 29.5 MCHC 33.1 RDW 11.9 L Plt Count 282 MPV 10.0 Neut # (Auto) 5.9 Lymph # (Auto) 3.0 [place] # (Auto) 0.7 Eos # (Auto) 0.2 Baso # (Auto) 0.0 Absolute Nucleated RBC 0.00 Nucleated RBC % 0.0 Sodium 139 Potassium 3.6 Chloride 107 Carbon Dioxide 22 Anion Gap 10.0 BUN 24 H Creatinine 0.8 Estimated GFR (MDRD) 87 L Glucose 100 Calcium 9.7 Total Bilirubin 0.5 AST 23 ALT 13 Alkaline Phosphatase 79 Total Protein 7.9 Albumin 4.4 Globulin 3.5 Albumin/Globulin Ratio 1.3 Lipase 34 - Rads (name of study) CT head Radiology: Final report received, EMP read indepedently, See rad report (NAD; findings c/w remote L temporal lobectomy.) PD MEDICAL DECISION MAKING - ED course Complexity details: reviewed results, re-evaluated patient, considered differential, d/w patient ED course: I discussed with the patient that I did not see a reason that she should be particularly concerned about seizure at this point. She has not had a seizure since her lobectomy 11 years ago. While she has had insomnia and some stress with her being gone, this is not the first time she has been in this condition and she has not had a seizure previously. The patient also has worked out within the last 24 hours without adequate fluid intake either before or after, and I suspect that this is not helped her to feel well, either. The patient was still extremely concerned and wished to have further work-up done. CT scan of the head was unremarkable for acute changes. Patient's labs were unremarkable. She was given a large amount of water to drink in the emergency department. The patient Expressed her desire for EEG and I have explained to her that there is no emergent role for this at this time and that this furthermore is a specialized neurologic procedure which would need to be at very least scheduled through her primary care physician but possibly through neurology. I have encouraged the patient to follow-up with her PCP. In the meantime she should drink plenty of fluids and get rest. She may take ibuprofen and Tylenol for her headache. We have discussed the usual indications for return. Departure - Departure Disposition: 01 Home, Self Care Clinical Impression: Dehydration after exertion Headache Qualifiers: Headache type: unspecified Headache chronicity pattern: acute headache Intractability: not intractable Qualified Code(s): R51.9 - Headache, unspecified Condition: Stable Instructions: ED Dehydration, ED Cephalgia Unspecified Comments: Your labs look good. There is nothing acutely abnormal about your CT scan. The surgical area does not appear abnormal, other than expected after a lobectomy. There is no bleeding or tumor in your brain. It is impossible to predict when you may have a seizure. However, given that it has been 11 years since your last seizure, and that your seizures ended when you had the lobectomy, it is unlikely that you are on the cusp of having another seizure. Most likely, your symptoms today were due to working out in the form of running without drinking enough water throughout the rest of the day, as well as stress and lack of sleep lately. Sometimes a headache simply happens. If you have further concerns about this, or wish to be referred back to neurology, please make an appointment to see your primary doctor. Discharge Date/Time: 03/05/20 04:30
[2020-03-05 03:40] VITALS: BP 110/66
--- NOTE | 2020-03-05 07:24 | CT Report ---
PROCEDURE: HEAD WO INDICATIONS: headache, feels like seizure, h/o L temporal lobec TECHNIQUE: Noncontrast 4.5 mm thick angled axial sections acquired from the foramen magnum to the vertex. For r adiation dose reduction, the following was used: automated exposure control, adjustment of mA and/or kV according to patient size. COMPARISON: None. FINDINGS: Image quality: Excellent. CSF spaces: Basal cisterns are patent. No extra-axial fluid collections. Ventricles are normal in size and shape. Brain: No midline shift. No intracranial masses or hemorrhage. Cruz-white matter interface is norm al. Surgical resection cavity anterior left temporal lobe. Skull and face: Postsurgical changes compatible with prior left temporal craniotomy. The visualized f acial bones are intact, without suspicious lesions. Sinuses: Visualized sinuses and mastoids are clear. IMPRESSION: No acute intracranial disease process. Reviewed by: Samra Castro MD, PhD on 03/05/2020 7:22 AM PST Approved by: Sarma Castro MD, PhD on 03/05/2020 7:22 AM PST Station ID: [id number]
== END 2020-03-05 04:30 | disposition home or self-care (01) ==
LOC: EDUNIT# → ED 02:17
DX: E86.0 Dehydration (principal); E87.8 Other disorders of electrolyte and fluid balance, not elsewhere classified; Z90.2 Acquired absence of lung [part of]
CPT/HCPCS: 36415; 70450; 80053; 83690; 85025; 99284

== ENCOUNTER 2021-04-17 10:24 | Outpatient (CLI) | payer OTHER ==
--- NOTE | 2021-04-17 16:50 | Ultrasound Report ---
PROCEDURE: OB First Trimester w/TV INDICATIONS: POSITIVE TEST OUTSIDE/PRIOR DATING DATA: Last menstrual period (LMP): 02/11/2021. LMP-based estimated date of delivery (JAMIE): 11/18/2021. First dating scan (date and location): 04/17/2021. Estimated date of delivery (JAMIE) from first dating scan: 11/13/2021. The below data below was generated using the ultrasound JAMIE of 11/13/2021 TECHNIQUE: Real-time scanning was performed of the fetus and maternal pelvic organs, with image documentation. Endovaginal scanning was also performed to better visualize the fetus and maternal ovaries. COMPARISON: None FINDINGS: Embryo: Single living intrauterine gestation with estimated sonographic gestational age of approxima tely 10 weeks and 0 days based off crown-rump length measurement of 3.09 cm. Normal yolk sac is seen. Small perigestational hemorrhage measuring 2.4 x 1.3 x 1.0 cm. Heart rate: 166 bpm. Measurement variability in dating: +/- 4 weeks by LMP, +/- 7 days by mean sac diameter (use before 6 weeks gestation if crown-rump length not able to be measured), +/- 5 days by crown-rump length (6-12 weeks gestation). Maternal organs: Ovaries are unremarkable with right corpus luteal cyst measuring 2.6 x 2.1 x 1.7 cm . IMPRESSION: Single living intrauterine gestation with estimated sonographic gestational age of approximately 10 w eeks and 0 days based off crown-rump length measurement. Estimated date of delivery based off sonogra phic measurement is approximately 11/13/2021. Small perigestational hemorrhage. Recommend continued clinical surveillance with routine follow-up second trimester anatomic scre ening survey. Reviewed by: Harshal Melendez MD on 04/17/2021 4:48 PM PST Approved by: Harshal Melendez MD on 04/17/2021 4:48 PM PST Station ID: [id number]
== END 2021-04-17 10:25 | disposition home or self-care (01) ==
LOC: DI 10:24
PROVIDERS: ATTEND Obstetrics & Gynecology
DX: O20.8 Other hemorrhage in early pregnancy (principal); Z3A.10 10 weeks gestation of pregnancy

== ENCOUNTER 2021-04-22 08:00 | Outpatient (CLI) | payer OTHER ==
[2021-04-22 21:49] LABS: CHLAMYDIA TRACHOMATIS DNA NEGATIVE (NEGATIVE); NEISSERIA GONORRHOEAE DNA NEGATIVE (NEGATIVE); TRICHOMONAS VAGINALIS DNA NEGATIVE (NEGATIVE)
== END 2021-04-22 23:59 | disposition home or self-care (01) ==
LOC: LAB 08:00
PROVIDERS: ATTEND Nurse Practitioner Obstetrics & Gynecology
DX: Z11.3 Encounter for screening for infections with a predominantly sexual mode of transmission (principal)
CPT/HCPCS: 87491; 87591; 87661

== ENCOUNTER 2021-04-22 09:46 | Outpatient (CLI) | payer OTHER ==
[2021-04-22 10:09] LABS: BASOPHILS % (AUTO) 0.2 %; EOSINOPHILS # (AUTO) 0.1 10^3/uL (0.0-0.7); EOSINOPHILS % (AUTO) 0.5 %; LYMPHOCYTES # (AUTO) 1.7 10^3/uL (1.5-3.5); MEAN CORPUSCULAR HEMOGLOBIN 29.3 pg (27.0-31.0); MEAN CORPUSCULAR HGB CONC 33.3 g/dL (32.0-36.0); MEAN PLATELET VOLUME 9.2 fL (7.9-10.8); MONOCYTES # (AUTO) 0.6 10^3/uL (0.0-1.0); MONOCYTES % (AUTO) 5.5 %; NEUTROPHILS # (AUTO) 8.4 10^3/uL (1.5-6.6); NEUTROPHILS % (AUTO) 77.3 %; PLT - PLATELET COUNT 261 10^3/uL (130-450); RED BLOOD COUNT 4.09 10^6/uL (4.20-5.40); WHITE BLOOD COUNT 10.8 x10^3/uL (4.8-10.8)
[2021-04-23 09:56] LABS: HEPATITIS B SURFACE ANTIGEN NON-REACTIVE (NON-REACTIVE); HEPATITIS C ANTIBODY NON-REACTIVE (NON-REACTIVE)
[2021-04-23 14:57] LABS: HIV AG/AB 4TH GEN NON-REACTIVE (NON-REACTIVE)
== END 2021-04-22 09:47 | disposition home or self-care (01) ==
LOC: LAB 09:46
PROVIDERS: ATTEND Obstetrics & Gynecology
DX: Z36.89 Encounter for other specified antenatal screening (principal)
CPT/HCPCS: 36415; 85025; 86592; 86762; 86787; 86803; 86850; 86900; 86901; 87340; 87389

== ENCOUNTER 2021-05-28 08:00 | Outpatient (CLI) | payer OTHER ==
[2021-05-28 16:05] LABS: BILIRUBIN,URINE NEGATIVE (NEGATIVE); GLUCOSE, URINE (UA) NEGATIVE (NEGATIVE); KETONES,URINE (UA) NEGATIVE (NEGATIVE); LEUKOCYTE ESTERASE, URINE TRACE (NEGATIVE); NITRITE,URINE NEGATIVE (NEGATIVE); OCCULT BLOOD,URINE NEGATIVE (NEGATIVE); PH,URINE 6.5 PH (5.0-7.5); PROTEIN,URINE NEGATIVE (NEGATIVE); UROBILINOGEN,URINE 0.2 (NORMAL) E.U./dL (NORMAL)
[2021-05-28 16:48] LABS: BACTERIA,URINE None Seen /HPF (None Seen); CLARITY,URINE CLEAR (CLEAR); MUCUS,URINE Moderate Strands; RBC,URINE 0-5 /HPF (0-5); SQUAMOUS EPITHELIAL CELL,UR MANY Squamous (<= Few)
== END 2021-05-28 23:59 ==
LOC: LAB 08:00
PROVIDERS: ATTEND Obstetrics & Gynecology
DX: Z34.90 Encounter for supervision of normal pregnancy, unspecified, unspecified trimester (principal)
CPT/HCPCS: 81001; 87086

== ENCOUNTER 2021-06-16 11:46 | Outpatient (CLI) | payer OTHER ==
[2021-06-18 04:01] LABS: AFP MOM 1.72; AGE RISK DOWN SYNDROME 1 IN 947; CALC'D GESTATIONAL AGE 17.9 weeks; CIGARETTE SMOKER? NOT GIVEN; DONOR AGE: EGG RETRIEVAL NOT GIVEN; DONOR EGG NO; HCG MOM 1.99; HX OF NEURAL TUBE DEFECTS NO; INHIBIN A MOM 1.59; INSULIN DEPEND DIABETIC NO; MATERNAL WEIGHT 235 lbs; MSS DOWN SYNDROME RISK <1 IN 5000; MSS3 TRISOMY 18 RISK <1 IN 5000; NUMBER OF FETUSES 1; PREV PREGNANCY DOWN SYND NO; RISK FOR ONTD 1 IN 1551
== END 2021-06-16 11:47 | disposition home or self-care (01) ==
LOC: LAB 11:46
PROVIDERS: ATTEND Obstetrics & Gynecology
DX: Z34.00 Encounter for supervision of normal first pregnancy, unspecified trimester (principal)
CPT/HCPCS: 36415; 81511

== ENCOUNTER 2021-07-02 08:00 | Outpatient (CLI) | payer OTHER ==
[2021-07-02 16:39] LABS: BILIRUBIN,URINE NEGATIVE (NEGATIVE); GLUCOSE, URINE (UA) NEGATIVE (NEGATIVE); KETONES,URINE (UA) NEGATIVE (NEGATIVE); LEUKOCYTE ESTERASE, URINE MODERATE (NEGATIVE); NITRITE,URINE NEGATIVE (NEGATIVE); OCCULT BLOOD,URINE NEGATIVE (NEGATIVE); PROTEIN,URINE NEGATIVE (NEGATIVE); UROBILINOGEN,URINE 0.2 (NORMAL) E.U./dL (NORMAL)
[2021-07-02 17:35] LABS: BACTERIA,URINE Few /HPF (None Seen); CLARITY,URINE CLEAR (CLEAR); RBC,URINE 0-5 /HPF (0-5); SQUAMOUS EPITHELIAL CELL,UR MANY Squamous (<= Few); YEAST,URINE PRESENT
[2021-07-02 21:50] LABS: BACTERIAL VAGINOSIS DNA POSITIVE (NEGATIVE); CANDIDA GLABRATA DNA NEGATIVE (NEGATIVE); CANDIDA GROUP DNA POSITIVE (NEGATIVE); CANDIDA KRUSEI DNA NEGATIVE (NEGATIVE); TRICHOMONAS VAGINALIS DNA NEGATIVE (NEGATIVE)
== END 2021-07-02 23:59 | disposition home or self-care (01) ==
LOC: LAB.WC 08:00
PROVIDERS: ATTEND Obstetrics & Gynecology
DX: R30.0 Dysuria (principal); N76.0 Acute vaginitis
CPT/HCPCS: 81001; 81514; 87086

== ENCOUNTER 2021-07-03 20:54 | Outpatient (CLI) | payer OTHER ==
--- NOTE | 2021-07-07 11:15 | Ultrasound Report ---
PROCEDURE: OB Detailed Eval INDICATIONS: SUPERVISION OF OUTSIDE/PRIOR DATING DATA: Last menstrual period (LMP): 02/11/2021. LMP-based estimated date of delivery (JAMIE): 11/18/2021. First dating scan (date and location): 04/17/2021. Estimated date of delivery (JAMIE) from first dating scan: 11/13/2021. The below data below was generated using the ultrasound JAMIE of 11/13/2021 TECHNIQUE: Real-time scanning was performed of the fetus, with image documentation and biometric measurements. Endovaginal scanning: Not performed COMPARISON: None. FINDINGS: General: A single living intrauterine gestation is present. Presentation: Variable Placenta: Placental position is posterior, without previa. Amniotic fluid index: 17.4 cm. heart rate: 150 beats per minute. Maternal cervical canal: 3. cm long; normal length is 2.5 cm or more. biometrics: Biparietal diameter: 5 cm Head circumference: 18.4 cm Abdominal circumference: 17 cm Femur length: 3.4 cm Estimated gestational age from initial scan: 21 weeks 0 days Composite gestational age from present scan: 21 weeks 0 days Estimated weight and percentile: 411 g, 60th percentile Measurement variability in biometric dating: +/- 10 days from 12-20 weeks gestation, +/- 2 weeks from 20-30 weeks gestation, +/- 3 weeks at 30 weeks gestation or later. Anatomic survey: Neuro: Ventricles are normal at less than 10 mm. Cisterna magna is normal at 3-11 mm. Cerebellum i s normal in size and morphology. Nuchal skin fold: Normal at less than 6 mm between 14 and 20 weeks gestational age. Face: Nose and lips, facial profile are normal. Spine: No evidence for spina bifida. Heart: 4-chambered heart is present, with normal ventricular outflow tracts. Diaphragm: Diaphragm is intact. Stomach: Left-sided stomach is present. Kidneys: No hydronephrosis. Normal is less than 5 mm in 2nd trimester, less than 7 mm in 3rd trimester. Cord: 3 vessel cord has orthotopic insertion. Bladder: Normal in size. Extremities: All 4 extremities are visualized. IMPRESSION: Single live intrauterine gestation with normal anatomic survey. Reviewed by: Jose Seo MD on 07/07/2021 11:14 AM PDT Approved by: Jose Seo MD on 07/07/2021 11:14 AM PDT Station ID: [id number]
== END 2021-07-03 20:55 | disposition home or self-care (01) ==
LOC: DI 20:54
PROVIDERS: ATTEND Obstetrics & Gynecology
DX: Z34.02 Encounter for supervision of normal first pregnancy, second trimester (principal); Z3A.21 21 weeks gestation of pregnancy; Z36.89 Encounter for other specified antenatal screening